=== PATIENT | male | born 1985 | race Caucasian/White ===

== ENCOUNTER 2023-09-17 12:46 | Emergency (ER) | payer MEDICAID ==
[~2023-09-17] VITALS: Ht 180.3 cm; Wt 124.0 kg
[~2023-09-17 12:46] MED LIST: CALC667C PO; DOXA-14 PO; HYDR50TA39 PO; NIFE-32 PO
[2023-09-17 12:49] VITALS: TEMP 98.3; O2SAT 98
[2023-09-17 13:00] VITALS: BP 151/96; PULSE 103; RESP 13
[2023-09-17] MEDS: MORPHINE SULFATE 4 MG/ML INJ (FOR IV/IM USE) IV STA (13:52)
[2023-09-17 13:57] LABS: BASOPHILS % 0.7 % (0.0-2.0); EOSINOPHILS % 1.3 % (0.0-5.0); HEMATOCRIT. 25.5 % (42.0-52.0); HEMOGLOBIN. 8.5 g/dL (14.0-18.0); LYMPHOCYTES % 11.8 % (20.0-50.0); MEAN CORPUSCULAR HEMOGLOBIN 29.6 pg (28.0-32.0); MEAN CORPUSCULAR HGB CONC 33.3 g/dL (31.0-37.0); MEAN PLATELET VOLUME 8.3 fl (7.4-10.4); MONOCYTES % 3.8 % (2.0-8.0); NEUTROPHILS % 82.4 % (40.0-76.0); PLATELET 240 x1000/uL (130-400); RED BLOOD CELL COUNT 2.86 mill/uL (4.7-6.1); RED CELL DISTRIBUTION WIDTH 17.3 % (11.6-14.6); WHITE BLOOD COUNT 6.3 x1000/uL (4.5-11.0)
[2023-09-17 14:05] LABS: CHLORIDE 102 mEq/L (98-107); POTASSIUM 4.4 mEq/L (3.5-5.1); SODIUM 137 mEq/L (136-145)
[2023-09-17 14:06] LABS: CARBON DIOXIDE 23 mEq/L (21-32)
[2023-09-17 14:07] LABS: CALCIUM 9.1 mg/dL (8.7-10.4); INR 1.1; PROTHROMBIN TIME 11.8 sec (9.6-11.0)
[2023-09-17 14:11] LABS: GLUCOSE 181 mg/dL (70-105)
[2023-09-17 14:12] LABS: TROPONIN I HIGH SENSITIVITY 22 ng/L (3.0-53); UREA NITROGEN BLOOD 54 mg/dL (9-23)
[2023-09-17 14:13] LABS: ALANINE AMINOTRANSFERASE 13 IU/L (10-49); ALBUMIN 4.3 g/dL (3.2-4.8); ASPARTATE AMINOTRANSFERASE 12 IU/L (<34)
[2023-09-17 14:14] LABS: BILIRUBIN DIRECT 0.2 mg/dL (<=3.0); BILIRUBIN TOTAL 0.5 mg/dL (0.1-1.0); PROTEIN TOTAL 6.9 g/dL (6.0-8.3)
[2023-09-17 14:27] LABS: CREATININE 11.3 mg/dL (0.6-1.3)
[2023-09-17] MEDS: HALOPERIDOL LACTATE 5MG/ML VIAL IM ONE (14:46)
[2023-09-17] MEDS: ONDANSETRON HCL 4MG/2ML INJ IV ONE (15:40)
== END 2023-09-17 16:41 | disposition left against medical advice (07) ==
LOC: ER 12:46
DX: R10.84 Generalized abdominal pain (principal); Z99.2 Dependence on renal dialysis; Z79.899 Other long term (current) drug therapy
CPT/HCPCS: 80076; 80048; 83690; 85025; 85610; 84484; 36415; 96372; 96374; 96375; 99284; J1630; J2405; J2270; Z7610 ×3

== ENCOUNTER 2023-09-23 10:17 | Emergency (ER) | payer MEDICAID ==
[~2023-09-23] VITALS: Ht 177.8 cm; Wt 100.0 kg
[2023-09-23 10:19] VITALS: O2SAT 98
[2023-09-23] MEDS: ONDANSETRON HCL 4MG/2ML INJ IV STA (10:37)
[2023-09-23] MEDS: MORPHINE SULFATE 4 MG/ML INJ (FOR IV/IM USE) IV STA (10:40)
[2023-09-23 11:21] LABS: BASOPHILS % 0.9 % (0.0-2.0); EOSINOPHILS % 1.2 % (0.0-5.0); HEMATOCRIT. 26.7 % (42.0-52.0); HEMOGLOBIN. 8.8 g/dL (14.0-18.0); LYMPHOCYTES % 7.2 % (20.0-50.0); MEAN CORPUSCULAR HEMOGLOBIN 29.7 pg (28.0-32.0); MEAN PLATELET VOLUME 7.6 fl (7.4-10.4); MONOCYTES % 4.1 % (2.0-8.0); NEUTROPHILS % 86.6 % (40.0-76.0); PLATELET 223 x1000/uL (130-400); RED BLOOD CELL COUNT 2.97 mill/uL (4.7-6.1); RED CELL DISTRIBUTION WIDTH 19.3 % (11.6-14.6)
[2023-09-23 11:28] LABS: CARBON DIOXIDE 27 mEq/L (21-32); CHLORIDE 100 mEq/L (98-107); POTASSIUM 4.1 mEq/L (3.5-5.1); SODIUM 139 mEq/L (136-145)
[2023-09-23 11:29] LABS: CALCIUM 8.8 mg/dL (8.7-10.4)
[2023-09-23 11:34] LABS: GLUCOSE 151 mg/dL (70-105); TROPONIN I HIGH SENSITIVITY 23 ng/L (3.0-53); UREA NITROGEN BLOOD 37 mg/dL (9-23)
[2023-09-23 11:35] LABS: ALANINE AMINOTRANSFERASE 14 IU/L (10-49); ALBUMIN 4.3 g/dL (3.2-4.8); ASPARTATE AMINOTRANSFERASE 15 IU/L (<34)
[2023-09-23 11:36] LABS: BILIRUBIN DIRECT 0.4 mg/dL (<=3.0); BILIRUBIN TOTAL 0.8 mg/dL (0.1-1.0); PROTEIN TOTAL 6.6 g/dL (6.0-8.3)
[2023-09-23 11:40] LABS: CREATININE 9.2 mg/dL (0.6-1.3)
[2023-09-23 12:17] LABS: INR 1.1; PROTHROMBIN TIME 11.9 sec (9.6-11.0)
[2023-09-23] MEDS ORDERED: DICY20TA2 MT (12:33)
[2023-09-23 12:40] VITALS: BP 148/91; PULSE 83; RESP 17; TEMP 98.2
== END 2023-09-23 12:50 | disposition home or self-care (01) ==
LOC: ER 10:17
DX: R10.84 Generalized abdominal pain (principal); R07.89 Other chest pain; N18.6 End stage renal disease; Z99.2 Dependence on renal dialysis; Z79.899 Other long term (current) drug therapy
CPT/HCPCS: 80076; 80048; 83690; 85025; 85610; 84484; 36415; 71045; 96374; 96375; 99284; J2405; J2270; Z7610

== ENCOUNTER 2024-03-28 20:03 | Emergency (ER) | payer MEDICAID ==
[~2024-03-28] VITALS: Ht 182.9 cm; Wt 87.0 kg
[~2024-03-28 20:03] MED LIST changes: +DICY20TA2 MT
[2024-03-28 20:05] VITALS: O2SAT 96
[2024-03-28] MEDS: LABETALOL 5MG/ML 4ML INJ IV ONE (21:13)
[2024-03-28 21:15] LABS: HEMATOCRIT. 32.4 % (42.0-52.0); HEMOGLOBIN. 10.7 g/dL (14.0-18.0); MEAN CORPUSCULAR VOLUME 96.9 fL (80.0-94.0); MEAN PLATELET VOLUME 9.2 fl (7.4-10.4); PLATELET 220 x1000/uL (130-400); RED BLOOD CELL COUNT 3.34 mill/uL (4.7-6.1); RED CELL DISTRIBUTION WIDTH 15.8 % (11.6-14.6); WHITE BLOOD COUNT 11.2 x1000/uL (4.5-11.0)
[2024-03-28] MEDS ORDERED: NICARDIPINE 40MG/200ML PREMIX 200 ML IV PRN (21:15)
[2024-03-28] MEDS ORDERED: NICARDIPINE 40MG/200ML PREMIX 200 ML IV ONE (21:15)
[2024-03-28 21:17] LABS: DIFFERENTIAL COMMENT 1
[2024-03-28] MEDS: NICARDIPINE 40MG/200ML PREMIX 200 ML IV STA (21:22)
[2024-03-28 21:25] LABS: CHLORIDE 99 mEq/L (98-107); POTASSIUM 4.1 mEq/L (3.5-5.1); SODIUM 140 mEq/L (136-145)
[2024-03-28 21:26] LABS: CARBON DIOXIDE 28 mEq/L (21-32)
[2024-03-28 21:31] LABS: ETHANOL BLOOD < 10 mg/dL (<10); GLUCOSE 147 mg/dL (70-105); UREA NITROGEN BLOOD 56 mg/dL (9-23)
[2024-03-28 21:32] LABS: GIANT PLATELETS FEW; PLATELET ESTIMATE NORMAL; TROPONIN I HIGH SENSITIVITY 40 ng/L (3.0-53)
[2024-03-28 21:33] LABS: ACETAMINOPHEN < 2 ug/mL (10-30)
[2024-03-28 22:27] LABS: CREATININE 11.5 mg/dL (0.6-1.3)
[2024-03-28 22:40] VITALS: BP 160/83; PULSE 91; RESP 12; TEMP 37.16964; O2SAT 99
== END 2024-03-28 23:05 | disposition short-term general hospital (02) ==
LOC: ER 20:08
DX: I61.8 Other nontraumatic intracerebral hemorrhage (principal); R41.82 Altered mental status, unspecified; I12.0 Hypertensive chronic kidney disease with stage 5 chronic kidney disease or end stage renal disease; N18.6 End stage renal disease; Z99.2 Dependence on renal dialysis; Z79.899 Other long term (current) drug therapy
CPT/HCPCS: 80048; 80307; 80329; 80320; 82962; 83880; 85025; 84484; 36415; 70450; 96374; 99291; Z7610 ×3; J3490; G0480